=== PATIENT | male | born 1970 | race Caucasian/White ===

== ENCOUNTER 2019-01-25 21:35 | Emergency (ER) | payer BC ==
[~2019-01-25] VITALS: Ht 162.6 cm; Wt 69.9 kg
--- NOTE | 2019-01-25 21:45 | NUR ---
Pt. ambulated into ED w/ c/o CP since 2099, non-radiating, states he feels like "there is a weight on my chest", denies SOB/GRAHAM/F/N/V/D, A/Ox4, RR even and unlabored, speaks in clear and complete sentences, bed in low position, wheels locked, monitoring from nurse station,
[2019-01-25] MEDS ORDERED: ASPIRIN 325 MG TABLET PO ONE (22:00)
[2019-01-25] MEDS ORDERED: NITROGLYCERIN 0.4 MG/TAB BOTTLE SL ONE ×2 (22:00→22:06)
[2019-01-25 22:02] LABS: BASOPHILS % (AUTO) 0.4 % (0.0-2.0); EOSINOPHILS # (AUTO) 0.1 K/uL (0.0-0.7); EOSINOPHILS % (AUTO) 1.2 % (0.0-7.0); HEMATOCRIT 41.7 % (36.7-47.1); LYMPHOCYTES # (AUTO) 3.4 K/uL (20.0-40.0); LYMPHOCYTES % (AUTO) 42.7 % (20.5-51.5); MEAN CORPUSCULAR HEMOGLOBIN 31.8 uug (23.8-33.4); MEAN CORPUSCULAR HGB CONC 34 g/dL (32.5-36.3); MEAN CORPUSCULAR VOLUME 94.5 fL (73.0-96.2); MONOCYTES # (AUTO) 0.7 K/uL (2.0-10.0); MONOCYTES % (AUTO) 8.5 % (0.0-11.0); NEUTROPHILS # (AUTO) 3.8 K/uL (1.8-8.9); NEUTROPHILS % (AUTO) 47.2 % (38.5-71.5); PLATELET COUNT (AUTO) 290 K/uL (152-348); RED BLOOD CELL COUNT(AUTO) 4.41 MIL/uL (4.06-5.63)
[2019-01-25 22:07] VITALS: BP 131/74
[2019-01-25] MEDS ORDERED: ASPIRIN 325 MG TABLET ONE (22:07)
[2019-01-25 22:10] LABS: CREATININE 1.3 mg/dL (0.6-1.3); POTASSIUM 3.5 mmol/L (3.5-5.1)
--- NOTE | 2019-01-25 22:12 | NUR ---
Rad. tech. at bedside for CXR,
--- NOTE | 2019-01-25 22:13 | NUR ---
2nd nitro given @ 2212 BP 111/65, HR 61
--- NOTE | 2019-01-25 22:17 | NUR ---
3rd nitro given @ 2217, BP 108/68 HR 56
[2019-01-25 22:23] LABS: BILIRUBIN,DIRECT 0.1 mg/dL (0.0-0.2); BILIRUBIN,TOTAL 0.3 mg/dL (0.2-1.0); TOTAL PROTEIN, SERUM 7.2 g/dL (6.4-8.2)
--- NOTE | 2019-01-25 22:23 | NUR ---
Pt. states he can breathe in better now and the CP is not noticeable, at bedside,
--- NOTE | 2019-01-25 22:45 | NUR ---
Pt. on cellphone w/ , resting in bed, NAD
--- NOTE | 2019-01-25 23:30 | NUR ---
Pt. up to use restroom, ambulates w/ steady gait,
--- NOTE | 2019-01-26 00:07 | NUR ---
Pt. resting in bed, IV intact/patent - no s/s infiltration/phlebitis,
--- NOTE | 2019-01-26 00:47 | NUR ---
Phleb. tech. at bedside for 2nd trop. blood draw,
--- NOTE | 2019-01-26 01:46 | NUR ---
Patient discharged to home in stable conditon. Written and verbal after care instructions given. Patient verbalizes understanding of instructions. Pt. d/c per MD order, d/c papers signed, all belongings w/ pt., ID band/IV removed, ambulated off unit w/ steady gait, VSS, NAD
== END 2019-01-26 01:49 | disposition home or self-care (01) ==
LOC: ER 21:35
DX: R07.9 Chest pain, unspecified (principal); R06.02 Shortness of breath; Z88.0 Allergy status to penicillin
CPT/HCPCS: 36415; 70030-TC; 71045; 85025; 93005; A4663